=== PATIENT | male | born 1965 | race Caucasian/White ===

== ENCOUNTER 2017-02-27 07:53 | Emergency (ER) | payer OTHER ==
[2017-02-27 07:54] VITALS: O2SAT 98
[2017-02-27 08:29] LABS: APPEARANCE,URINE Clear; BILIRUBIN,URINE NEGATIVE (NEGATIVE); GLUCOSE, URINE (UA) TRACE (NEGATIVE); KETONES,URINE NEGATIVE (NEGATIVE); LEUKOCYTE ESTERASE ,URINE NEGATIVE (NEGATIVE); NITRATE,URINE POSITIVE (NEGATIVE); OCCULT BLOOD,URINE 2+ (NEG-TRACE)
[2017-02-27 08:40] LABS: COLOR,URINE Orange
[2017-02-27 11:14] VITALS: BP 143/93; PULSE 72; RESP 20; TEMP 96.6
== END 2017-02-27 09:18 | disposition home or self-care (01) ==
LOC: ED 07:53
DX: N39.0 Urinary tract infection, site not specified (principal)
CPT/HCPCS: 81001; 87088; 99282; 99283